=== PATIENT | female | born 1945 | race Caucasian/White ===

== ENCOUNTER 2018-06-29 11:07 | Inpatient (IN) | payer MEDICARE ==
[~2018-06-29] VITALS: Ht 142.2 cm; Wt 51.7 kg
--- NOTE | ~2018-06-29 | HEMODYNAMI ---
PATIENT:PANCHO GONZALEZ MEDICAL RECORD: [id number] : 47 LOCATION: D.2227 ADMISSION DATE: 06/29/18 Generatedon:07/02/201813:56 Patient name: PANCHO GONZALEZ Patient #: [id number] SSN: D OB: 1945 Date of study: 07/02/2018 Page: Of Hemodynamic Procedure Report Patient Data Patient Demographics Procedure consent was obtained First Name: PANCHO Gender: Female Last Name: LISA : 1945 Patient #: [id number] Age: 73 year(s) Race: Unknown Additional ID: [id number] Contact details [address]: [address] [place] [address] DR State: [place] City: [place] Zip code: [address] Admission Admission Data Admission Date: 06/29/2018 Admission Time: 14:32 Room #: D.2227 Procedure Procedure Types Cath Procedure Peripheral Cath Diagnostic Procedure Abd/Extremity Extremities Bilat Lower Extremity Procedure Description Procedure Date Procedure Date: 07/02/2018 Procedure Start Time: 12:27 Procedure Staff Name Function Roddy Aaron RT Monitor Venkat Machuca MD Additional personnel Won Brown MD Performing Physician Graciela Barth RN Nurse Janie Thomas RN Nurse ANIYA ASHTON RT Scrub Procedure Data Cath Procedure Fluoroscopy Diagnostic fluoroscopy Total fluoroscopy Time: 9.1 time: 9.1 min min Diagnostic fluoroscopy Total fluoroscopy dose: 281 dose: 281 mGy mGy Contrast Material Contrast Material Type Amount (ml) Isovue 300 160 Entry Location Entry Primary Successful Side Size Upsize Upsize Entry Closure Succes sful Closure Location (Fr) 1 (Fr) 2 (Fr) Remarks Device Remarks Femoral Right 5 Fr artery Procedure Medications Medication Administration Route Dosage Lidocaine 1% added to field 20 Heparin Flush Bag 3 bags (1000units/500ml NS) Heparin Bolus I.V. 5000 units Hemodynamics Rest Heart Rate: 85 (bpm) Snapshots Pre Cath Intra NCS Post Cath Vital Signs Time Heart Resp SPO2 etCO2 NIBP (mmHg) Rhythm Pain Sedation Rate (ipm) (%) (mmHg) Status Level (bpm) 12:04:04 84 10 98 0 157/64(103) NSR 0 (11) 10(A) , No pain 12:08:22 96 17 0 158/86(120) NSR 0 (11) 10(A) , No pain 12:12:48 80 2 98 0 153/64(109) NSR 0 (11) 10(A) , No pain 12:17:08 68 4 97 0 113/51(87) NSR 0 (11) 10(A) , No pain 12:21:20 60 4 96 0 109/51(86) NSR 0 (11) 10(A) , No pain 12:25:30 58 4 96 0 108/54(83) NSR 0 (11) 10(A) , No pain 12:29:40 57 5 96 0 106/52(88) NSR 0 (11) 10(A) , No pain 12:33:50 57 5 96 0 109/52(85) NSR 0 () 10(A) , No pain 12:38:00 62 5 95 0 110/55(85) NSR 0 () 10(A) , No pain 12:42:10 62 5 95 0 108/52(82) NSR 0 (11) 10(A) , No pain 12:46:20 62 6 96 0 107/52(85) NSR 0 (11) 10(A) , No pain 12:50:29 64 5 96 0 104/50(88) NSR 0 (11) 10(A) , No pain 12:54:37 62 5 96 0 104/51(86) NSR 0 (11) 10(A) , No pain 12:58:47 64 5 96 0 94/47(74) NSR 0 (11) 10(A) , No pain 13:02:53 65 6 96 0 111/47(84) NSR 0 (11) 10(A) , No pain 13:07:07 67 6 97 0 105/44(84) NSR 0 (11) 10(A) , No pain 13:11:17 66 7 95 0 106/50(77) NSR 0 (11) 10(A) , No pain 13:15:27 66 6 97 0 104/50(87) NSR 0 (11) 10(A) , No pain 13:19:34 63 6 97 0 108/50(84) NSR 0 (11) 10(A) , No pain 13:23:44 65 7 0 112/52(89) NSR 0 (11) 10(A) , No pain 13:27:56 70 6 97 0 113/48(93) NSR 0 (11) 10(A) , No pain 13:32:08 65 7 96 0 120/51(88) NSR 0 (11) 10(A) , No pain 13:36:22 65 7 97 0 116/55(91) NSR 0 (11) 10(A) , No pain 13:40:32 69 7 97 0 131/64(101) NSR 0 (11) 10(A) , No pain 13:45:31 75 7 100 0 Measuring NSR 0 (11) 10(A) , No pain 13:45:41 75 7 100 0 173/82(115) NSR 0 (11) 10(A) , No pain 13:50:06 86 8 0 181/87(129) NSR 0 (11) 10(A) , No pain Medications Time Medication Route Dose Verified Delivered Reason Notes Effectiveness by by 12:04:45 Lidocaine 1% added 20ml Won Upton for local to vial Stephanie Brown MD anesthetic field 12:07:51 Heparin Flush 3 Won Upton used for Bag bags Stephanie Brown MD procedure (1000units/500ml NS) 12:55:17 Heparin Bolus I.V. 5000 Won Dardeni for units William Brown RN anticoagulation MD Procedure Log Time Note 11:49:00 Roddy Walker RT (R) (CV) sent for patient. Start room use. 11:49:52 Venkat Machuca MD present and monitoring patient for TIVA. 11:50:27 Time tracking: Regular hours (M-F 7:00 - 5:00) 11:50:31 Plan of Care:Hemodynamics will remain stable., Cardiac rhythm will remain stable., Comfort level will be maintained., Respiratory function will remain adequate., Patient/ family verbilizes understanding of procedure., Procedure tolerated without complication., Recovers from procedure without complications.. 11:50:39 Patient received from Med/Surg to IR Alert and oriented. Tansferred to table in Supine position. 11:50:46 Correct patient and procedure confirmed by team. 11:50:52 Signed procedure consent form obtained from patient. 11:50:53 ECG and BP/O2 sat monitors applied to patient. 11:50:54 - 11:50:55 Full Disclosure recording started 11:51:12 Pre-procedure instructions explained to patient. 11:51:12 Pre-procedure instructions explained to patient. 11:51:19 H&P Date Dictated: 07/02/2018 Within 30 days and on chart.. 11:51:21 Pre-op teaching completed and patient verbalized understanding. 11:51:23 Family in waiting room. 11:51:27 - 11:51:27 Patient NPO since Midnight. 11:51:51 SEE ANESTHESIA NOTE FOR PRE PROCEDURE ANESTHESIA 11:51:54 - 11:51:59 Use device set IR Diagnostic 11:52:00 ACIST Syringe (82351) opened to sterile field. 11:52:01 Bag Decanter () opened to sterile field. 11:52:01 ACIST Manifold (89170) opened to sterile field. 11:52:01 ACIST Hand Control (66783) opened to sterile field. 11:52:02 Tegaderm 4 x 4 (1626W) opened to sterile field. 11:52:02 Sterile Angiographic Pack opened to sterile field. 12:02:45 Baseline sample Acquired. 12:02:45 Vital chart was started 12:02:53 Right groin area was prepped with chlora-prep and draped in sterile fashion 12:02:55 Alarms reviewed by R. N. 12:02:56 Sharps counted by scrub and verified by R.N. 12:04:45 Lidocaine 1% 20ml vial added to field was administered by Won Brown MD; for local anesthetic; 12:07:51 Heparin Flush Bag (1000units/500ml NS) 3 bags was administered by Won Brown MD; used for procedure; 12::31 --------ALL STOP TIME OUT------ 12::35 Final Timeout: patient, procedure, and site verified with staff and physician. All members of the team are in agreement. 12:26:36 Right groin site verified by team. 12:26:48 Fire Safety Assessment: A--An alcohol-based skin anteseptic being used preoperatively., C--Open oxygen or nitrous oxide is being used. 12:26:58 Sedation plan: General Anesthesia Medication:General Anesthesia 12:27:10 Procedure started. 12:27:15 Local anesthetic to right femoral artery with Lidocaine 1% by Won Brown MD.INITIAL ACCESS ONLY 12:27:17 Access obtained with 4Fr micropunture. 12:27:27 A 5 Fr sheath was inserted into the Right Femoral artery 12:27:31 Micropuncture VSI 4FR kit opened to sterile field. 12:27:31 DOC .035 wire (D65193) opened to sterile field. 12:27:32 HERNANDEZ 260 wire (N18413) opened to sterile field. 12:27:32 SHEATH 6FR Destination (RSR01) opened to sterile field. 12:27:32 TUBING Contrast Injection High Pressure (RKP401H) opened to sterile field. 12:27:32 SHEATH 5FR Birney (ZRO415) opened to sterile field. 12:27:33 Angiodynamics Omniflush 5Fr 65cm (24915327) opened to sterile field. 12:30:27 TORQUE DEVICE PLASTIC .038 ( TD01) opened to sterile field. 12:30:28 GLIDE WIRE ANGLE 180cm (EF6471) opened to sterile field. 12:37:22 GLIDE CATHETER 5FR ANGLED 65cm (CG507) opened to sterile field. 12:43:39 INFLATOR BasixTOUCH (NM8002) opened to sterile field. 12:43:40 ROADRUNNER .035 145 glide wire (X23359) opened to sterile field. 12:53:27 CHOICE PT Extra Support J 300cm guide wire ([id number]) opened to steril e field. 12:55:15 Hawkone Medium Atherectomy System (H1-M) opened to sterile field. 12:55:17 Heparin Bolus 5000 units I.V. was administered by Janie Thomas RN; for anticoagulation; 12:56:30 SPIDER EMBOLIC PROTECTION DEVICE 5MM ([id number]) opened to sterile field. 13:20:39 Access obtained with 4Fr micropunture. 13:23:54 Inflate balloon Inflation number: 2 A Evercross 5 x 4 x 135 Balloon ([id number]) was prepped and advanced across the Proximal Superficial Femoral, Left, then inflated to 14 DUANE for 0:00 (min:sec). 13:26:26 Inflate balloon Inflation number: 1 A IN.PACT Admiral 6 x 60 x 130 DCB Balloon ([id number]) was prepped and advanced across the Proximal Superficial Femoral, Left, then inflated to 0 DUANE for 2:58 (min:sec). 13:26:29 SHEATH 6FR Birney (BQB053) opened to sterile field. 13:38:06 EXOSEAL 6Fr (EX600) opened to sterile field. 13:38:13 Procedure ended.(Physican Out) 13:38:27 Fluoroscopy time 09.10 minutes. 13:38:31 Fluoroscopy dose: 281 mGy 13:38:31 Flurop Dose total: 281 13:38:33 Sharps counted by scrub and verified by R.N. 13:38:35 Insertion/operative site no bleeding no hematoma. 13:38:38 Post-op/insertion site Right Femoral artery dressed using a 4 x 4 and Tegaderm. 13:38:49 Post right femoral artery:stable 13:44:02 Post Procedure Pulses reassessed and unchanged 13:52:34 Patient needs reinforcement of post procedure teaching. 13:52:41 Report given to Recovery Room. 13:52:48 Patient transfered to Recovery Room with Bed. 13:53:25 Vital chart was stopped 13:53:30 Full Disclosure recording stopped 13:55:46 Contrast amount:Isovue 300 160ml. Intervention Summary Intervention Notes Time ActionType Lesion and Equipment Used Action# Pressure Duration Attributes 13:23:54 Inflate Proximal Evercross 5 x 4 2 14 00:00 balloon Superficial x 135 Balloon Femoral, ([id number]) Left 13:26:26 Inflate Proximal IN.PACT Admiral 1 0 02:58 balloon Superficial 6 x 80 x 130 Femoral, DCB Balloon Left ([id number]) Device Usage Item Name Manufacture Quantity Catalog Number [facility] Minimal Lot# / Charge Number Stock Stock Serial# Code ACIST Syringe Acist Medical 1 07610 583098 576617 096054 20 (00919) Systems Inc ACIST Hand Acist Medical 1 37843 475650 267961 149182 5 Control (15779) Systems Inc ACIST Manifold Acist Medical 1 73598 198764 237113 266913 5 (45748) Systems Inc Bag Decanter Microtek 1 2001S 153283 71556 212502 5 (2001S) Medical Inc. Sterile Cardinal 1 [id number] 289748 536454 5 Angiographic Health Pack Tegaderm 4 x 4 3M 1 1626W 474884 921266 410015 5 (1626W) DOC .035 wire Cook Medical 1 U11304 073095 440322 5 (S58642) Micropuncture VSI VASCULAR 1 7266V 068171 247887 5 VSI 4FR kit SOLUTIONS TUBING Contrast [facility] 1 [id number] 748015 883826 893180 5 Injection High Pressure (WOA001H) SHEATH 5FR Terumo 1 SED746 262065 369175 729909 5 Birney (NCY040) HERNANDEZ 260 wire Cook Medical 1 Y12473 432736 82579 041487 5 (V68822) SHEATH 6FR Terumo 1 RSR01 612176 86146 520430 5 Destination (RSR01) Angiodynamics Angiodynamics 1 82321095 976087 296950 211270 5 Omniflush 5Fr 65cm (16116712) TORQUE DEVICE [place] 1 TD01 797969 090712 555717 5 PLASTIC .038 ( Scientific TD01) GLIDE WIRE Terumo 1 LH9403 887733 325990 064676 5 ANGLE 180cm (BG8327) GLIDE CATHETER Terumo 1 CG507 279272 758353 5 5FR ANGLED 65cm (CG507) INFLATOR [facility] 1 IA8189 189701 595714 916268 5 BasixTOUCH (SA6724) ROADRUNNER .035 Cook Medical 1 D36656 531854 022735 240293 5 3148365 145 glide wire (U64443) CHOICE PT Extra [place] 1 [id number] 854402 910819 641724 5 [id number] Support J 300cm Scientific guide wire (1178049F8) Hawkone Medium Medtronic 1 H1-M 261044 078677 83 5 [id number] Atherectomy System (H1-M) SPIDER EMBOLIC Medtronic 1 JCB6-OM-835-320 618534 285487 5 PROTECTION DEVICE 5MM ([id number]) IN.PACT Admiral Medtronic 1 [id number] 545359 243602 466151 5 6 x 80 x 130 DCB Balloon ([id number]) SHEATH 6FR Terumo 1 AQL848 409392 510434 508081 40 Birney (NVE000) Evercross 5 x 4 Medtronic 1 [id number] 169978 563065 726311 5 O730237 x 135 Balloon ([id number]) EXOSEAL 6Fr Cardinal 1 EX600 277877 281862 171239 10 [id number] (EX600) Health Signature Audit [place] Stage Time Signature Unsigned Intra-Procedure 07/02/2018 Roddy Walker RT 1:53:09 PM Shuffield RT (R) (CV) 07/02/2018 (R) (CV) 1:55:40 PM Intra-Procedure 07/02/2018 Roddy 1:56:27 PM Yuridiaield RT (R) (CV) Signatures Monitor : Roddy Signature : Aaron RT Date : Time : [facility] [address] [place] [address]
[2018-06-29 11:37] LABS: BASOPHILS 0.5 % (0-2); EOSINOPHILS 0.3 % (0-7); HEMATOCRIT 37.8 % (36.0-48.0); HEMOGLOBIN 12.4 g/dL (12-16); IMMATURE GRANULOCYTES 0.2 % (0-5); LYMPHOCYTES 22.1 % (15-50); MCHC 32.8 g/dL (31.0-37.0); MCV 100.5 fL (80.0-100.0); MEAN PLATELET VOLUME 10.3 fL (7.4-10.4); MONOCYTES 9.7 % (2-11); NEUTROPHILS 67.2 % (40-80); PLATELET COUNT 210 10x3/uL (130-400); RBC 3.76 10x6/uL (4.00-5.40); WBC 11.1 10x3/uL (4.8-10.8)
[2018-06-29 12:00] LABS: ALBUMIN 2.7 g/dL (3.4-5.0); ALKALINE PHOSPHATASE 130 U/L (46-116); ALT (SGPT) 32 U/L (10-68); BILIRUBIN - TOTAL 0.59 mg/dL (0.2-1.3); CALC OSMOLALITY 278 mosm/kg (275-300); CALCIUM 8.4 mg/dL (8.5-10.1); CARBON DIOXIDE 22.5 mmol/L (21.0-32.0); CHLORIDE - SERUM 107 mmol/L (98-107); CREATININE - SERUM 0.3 mg/dL (0.6-1.3); GLUCOSE 84 mg/dL (74-106); POTASSIUM - SERUM 4.2 mmol/L (3.5-5.1); PROTEIN - SERUM 5.6 g/dL (6.4-8.2); SODIUM 141 mmol/L (136-145); UREA NITROGEN 11 mg/dL (7-18); eGFR NON AFRICAN AMERICAN > 90 mL/min (90-120)
[2018-06-29 12:23] LABS: APPEARANCE CLEAR (CLEAR); BILIRUBIN NEGATIVE (NEGATIVE); COLOR YELLOW (YELLOW); GLUCOSE NEGATIVE (NEGATIVE); KETONE NEGATIVE (NEGATIVE); NITRITE NEGATIVE (NEGATIVE); PROTEIN NEGATIVE (NEGATIVE)
[2018-06-29 12:25] LABS: BACTERIA MODERATE /hpf (NONE SEEN); EPITHELIAL CELLS 0-5 /hpf (0-5); MUCUS <1+ /lpf (NONE SEEN); RED CELLS - URINE RARE /hpf (0-5); WHITE CELLS - URINE 0-5 /hpf (0-5)
--- NOTE | 2018-06-29 15:38 | NUR ---
Tips of toes on left foot are black/necrotic without drainage or odor. Foot is cold to the touch. Primary RN unable to locate pulses with doppler. Orders from Dr. Huynh noted on daily care i.e. wash foot daily with hibiclens and apply ointment to black areas. Primary RN cultured left #5 toe. The toes on right foot are beginning to turn dark and the right foot is cold to the touch. Pt's primary RN had difficulty finding pulses with doppler. Wound care will continue monitoring.
--- NOTE | 2018-06-29 15:57 | NUR ---
ATTEMPTED IV PLACEMENT X2. UNABLE TO GET IV PLACEMENT. CALL TO [facility]
--- NOTE | 2018-06-29 16:15 | NUR ---
iv sited to right forearm x1 stick by shirin gonzalez rn,22g.
[2018-06-29] MEDS ORDERED: HYDROCODON-ACE1 EA10 PO (16:34)
[2018-06-29] MEDS ORDERED: COLCRYS0.6 MG PO (16:35)
[2018-06-29] MEDS ORDERED: LOMOTIL 2.5-0.1 EAC1 PO (16:37)
[2018-06-29] MEDS ORDERED: KEFLEX500 MG PO (16:38)
[2018-06-29] MEDS ORDERED: ULTRAM50 MG PO (16:39)
[2018-06-29] MEDS ORDERED: PLAVIX75 MG PO (16:39)
[2018-06-29] MEDS ORDERED: LIPITOR20 MG PO (16:40)
[2018-06-29] MEDS ORDERED: TOPAMAX50 MG PO (16:41)
[2018-06-29] MEDS ORDERED: LASIX40 MG PO (16:41)
[2018-06-29] MEDS ORDERED: REGLAN10 MG PO (16:43)
[2018-06-29] MEDS ORDERED: LEVO-T175 MCG PO (16:44)
[2018-06-29] MEDS ORDERED: CILOSTAZOL100 MG PO (16:45)
[2018-06-29] MEDS ORDERED: POTASSIUM99 M1 PO (16:46)
[2018-06-29] MEDS ORDERED: CELEXA20 MG PO (16:48)
[2018-06-29] MEDS ORDERED: IPRAT-ALBUT 0.5-3 ML UPD (16:49)
[2018-06-29 17:18] VITALS: BP 112/79; BMI 25.6
--- NOTE | 2018-06-29 19:15 | NUR ---
RECEIVED REPORT, ASSUMED CARE, A&O, SISTER AT BEDSIDE, CALL LIGHT IN REACH, BED LOWEST POSITION, DENIES NEEDS, HELPED UP TO BATHROOM, NO S/S OF DISTRESS NOTED, WILL CONTINUE POC
[2018-06-29 19:35] VITALS: BP 113/38
--- NOTE | 2018-06-30 01:00 | NUR ---
I have reviewed this patient and I concur with the Shift Assessment completed by the Licensed Practical Nurse today this shift.
[2018-06-30 01:36] VITALS: BP 115/47
[2018-06-30 05:39] VITALS: BP 112/53
--- NOTE | 2018-06-30 07:48 | NUR ---
aaox4. ON ROOM AIR, LEFT WRIST IV PATENT, INFUSING NS AT 50ML/HR WITH DILAUDID NON PROFIT DIRECTOR AT 0.2/10/0.4 SETTINGS, FALL PRECAUTIONS IN PLACE, FAMILY MEMBER PRESENT IN ROOM, DENIES ANY CURRENT NEEDS OR DISCOMFORTS, BED LOWERED AND LOCKED, CALL LIGHT WITHIN REACH. CPOC
[2018-06-30 09:10] VITALS: BP 120/46
[2018-06-30 10:27] VITALS: BMI 25.5
[2018-06-30 13:35] VITALS: BP 105/57
--- NOTE | 2018-06-30 13:35 | NUR ---
I have reviewed this patient and I concur with the Shift Assessment completed by the Licensed Practical Nurse today this shift.
[2018-06-30 16:48] VITALS: BP 119/46
--- NOTE | 2018-06-30 19:15 | NUR ---
RECEIVED CARE FROM DAY NURSE. LYING IN BED WATCHING TV. MOTHER AT SIDE. NO NEEDS VOICED AT THIS TIME. CALL LIGHT AT SIDE. IV INFUSING PER ORDER TO PATENT LEFT WRIST.
[2018-06-30 21:01] VITALS: BP 120/52
[2018-07-01 01:20] VITALS: BP 123/57
[2018-07-01 05:21] VITALS: BP 149/56
[2018-07-01 09:25] VITALS: BP 139/49
[2018-07-01 11:26] VITALS: Ht 142.2 cm; Wt 51.7 kg
[2018-07-01 12:20] VITALS: BP 115/45
--- NOTE | 2018-07-01 15:45 | NUR ---
CHANGED PT PC TECHNICIAN, WHILE IN PT ROOM, DR LAGUNAS STOPPED IN AND EXAMINED PT FOOT, STATED LEFT FOOT FEELS WARM TO TOUCH AND TOES LOOK GOOD CONSIDERING THE FACT. PT AND FAMILY MEMBER IN ROOM ASKED ABOUT POSSIBLE SURGERY AND WHEN IT WILL BE. PER NO NEED FOR SURGERY RIGHT NOW AND THE ONLY TOE THAT LOOKED BAD WAS THE LITTLE ONE AND IT WILL MOST LIKELY FALL OFF. PT AND FAMILY STATED BEST NEWS THEY HAVE HEARD. NO OTHER NEEDS VOICED, CONTINUE WITH PLAN OF CARE
--- NOTE | 2018-07-01 16:21 | NUR ---
I have reviewed this patient and I concur with the Shift Assessment completed by the Licensed Practical Nurse today this shift.
[2018-07-01 16:36] VITALS: BP 113/46
--- NOTE | 2018-07-01 19:15 | NUR ---
RECEIVED CARE FROM DAY NURSE. LYING IN BED WITH DAUGHTER AT SIDE. NO NEEDS VOICED AT THIS TIME. IV INFUSING TO PATENT LEFT WRIST. CALL LIGHT AT SIDE.
--- NOTE | 2018-07-01 19:25 | NUR ---
SPOKE WITH RADIOLOGY DEPARTMENT ABOUT PT BEING ON PLAVIX AND LOVENOX. LOVENOX ON HOLD AT THIS TIME.
[2018-07-01 19:45] VITALS: BP 119/48
[2018-07-02] VITALS (13 sets, daily range): BP systolic 121–172; BP diastolic 41–82
[2018-07-02 05:53] LABS: BASOPHILS 0.3 % (0-2); EOSINOPHILS 3.4 % (0-7); HEMATOCRIT 34.5 % (36.0-48.0); IMMATURE GRANULOCYTES 0.3 % (0-5); LYMPHOCYTES 24.6 % (15-50); MCH 32.4 pg (26.0-34.0); MCHC 31.9 g/dL (31.0-37.0); MCV 101.8 fL (80.0-100.0); MEAN PLATELET VOLUME 10.7 fL (7.4-10.4); NEUTROPHILS 58.4 % (40-80); PLATELET COUNT 189 10x3/uL (130-400); RBC 3.39 10x6/uL (4.00-5.40); RDW 15.3 % (11.5-14.5); WBC 7.3 10x3/uL (4.8-10.8)
[2018-07-02 06:10] LABS: CALC OSMOLALITY 289 mosm/kg (275-300); CALCIUM 7.7 mg/dL (8.5-10.1); CARBON DIOXIDE 27.5 mmol/L (21.0-32.0); CHLORIDE - SERUM 111 mmol/L (98-107); CREATININE - SERUM 0.5 mg/dL (0.6-1.3); GLUCOSE 94 mg/dL (74-106); SODIUM 147 mmol/L (136-145); UREA NITROGEN 7 mg/dL (7-18); eGFR NON AFRICAN AMERICAN > 90 mL/min (90-120)
[2018-07-02 06:27] LABS: POTASSIUM - SERUM 2.9 mmol/L (3.5-5.1)
--- NOTE | 2018-07-02 06:32 | NUR ---
DR PATTERSON PAGED ABOUT LOW K LEVEL
--- NOTE | 2018-07-02 06:35 | NUR ---
SPOKE WITH DR PATTERSON AND REPORTS THAT DR LAGUNAS TAKES HIS OWN CALLS. NO PHONE NUMBER AVAILABLE FOR DR LAGUNAS. CALLING DR ELENA OFFICE DOES NOT LEAD TO A CALL SERVICE.
[2018-07-02 06:36] LABS: APTT 28.8 SECONDS (22.8-39.4)
[2018-07-02 06:40] LABS: INR 0.9 (0.85-1.17); PROTIME 11.7 SECONDS (11.6-15.0)
--- NOTE | 2018-07-02 08:00 | NUR ---
LYING IN BED,WITHOUT DISTRESS. NPO FOR PROCEDURE. CALL LIGHT IN REACH
--- NOTE | 2018-07-02 10:28 | NUR ---
PT RESTING QUIETLY IN BED, LIGHTS ON AND EYES OPEN. RESPIRATIONS EVEN AND UNLABORED. FAMILY AT BEDSIDE. NPO STATUS MAINTAINED PREPROCEDURE TODAY. AM MEDS GIVEN WITH MINIMAL WATER. NEW PVIC PLACED, 20G TO L AC, ONE ATTEMPT TOLERATED WELL. BIGGER ACCESS REQUIRED FOR PROCEDURE AND FOR IV POTASSIUM. PVIC TO L WRIST. 22G PATENT AND NONTENDER. NO SIGNS OF INFECTION OR INFILTRATION NOTED. NO COMPLAINTS VOICED AT THIS TIME. CALL LIGHT AND BEDSIDE TABLE IN REACH. BED IN LOWEST POSTION. ROOM FREE OF CLUTTER. ALL NEEDS MET AT THIS TIME. WILL CONTINUE TO MONITOR
--- NOTE | 2018-07-02 17:04 | NUR ---
Rehab Note- Acute Inpatient Rehab prescreen order received. The patient needs a PT Eval to eval functional mobility. Will follow at this time. Thank you for this referral! Anjelica Martin RN Clinical Liaison, [facility] Rehab
--- NOTE | 2018-07-02 20:00 | NUR ---
PT SITTING UP IN BED, NO SIGNS OF DISTRESS. ALERT AND ORIENTED. STATES PAIN 10/10. WILL GIVE NORCO ORDERED. DENIES OTHER NEEDS. FAMILY AT BEDSIDE. CL IN REACH, WILL CONT TO MONITOR
--- NOTE | 2018-07-03 01:00 | NUR ---
DR LAGUNAS CALLED FOR K+ 2.6. ORDERED ELECTROLYTE PROTOCOL. WILL FOLLOW ORDERED
[2018-07-03 01:43] VITALS: BP 105/51
--- NOTE | 2018-07-03 07:29 | MORECARE ---
CASE MANAGEMENT DISCHARGE SUMMARY PATIENT: PANCHO GONZALEZ UNIT: [id number] ADM DATE: 06/29/18 AGE: 73 : 46 SEX: F ROOM/BED: D.2227 AUTHOR: TUAN ODONNELL PHYSICIAN: REFERRING PHYSICIAN: DAVID LAGUNAS MD DATE OF SERVICE: 07/03/18 Discharge Plan Patient Name: PANCHO GONZALEZ [facility] [facility] 1945 Planned Disposition: Custodial Facility Anticipated Discharge Date: Discharge Date: Expected LOS: Initial Reviewer: [email or web address] Initial Review Date: 07/03/2018 Generated: 07/03/18 8:29 am External Providers External Provider: [facility] Next Contact Date: Service Request Date: Service Type: Resolution: Reviewer: Comments: Patient Name: PANCHO GONZALEZ Page 93160 at 0729 All edits/amendments must be made on the electronic document DICTATION DATE: 07/03/18728 TELEHEALTH NURSE: JORDYN 07/03/18728 RPT#: [id number] DC DATE: STATUS: ADM IN [facility] [address] [place] [address] END OF REPORT
--- NOTE | 2018-07-03 07:36 | MORECARE ---
CASE MANAGEMENT DISCHARGE SUMMARY PATIENT: PANCHO GONZALEZ UNIT: [id number] ADM DATE: 06/29/18 AGE: 73 : 46 SEX: F ROOM/BED: D.2227 AUTHOR: TUAN ODONNELL PHYSICIAN: REFERRING PHYSICIAN: DAVID LAGUNAS MD DATE OF SERVICE: 07/03/18 Discharge Plan Patient Name: PANCHO GONZALEZ Facility: [facility]:[place] : 1945 Planned Disposition: Long-Term Facility Anticipated Discharge Date: Discharge Date: Expected LOS: Initial Reviewer: [email or web address] Initial Review Date: 07/03/2018 Generated: 07/03/18 8:35 am DCPIA - Discharge Planning Initial Assessment Updated by [email or web address]: Nancy Pathak on 07/03/18 7:34 am * Is the patient Alert and Oriented? Yes * How many steps to enter\exit or inside your home? 1/0 * PCP Dr. Marroquin * Pharmacy [facility] in [place] * Preadmission Environment Home Alone * ADLs Partial Dependent * Partial ADLs (Assistance needed) Ambulation * Equipment Cane Nebulizer Oxygen Rolling Walker Shower Chair * List name and contact numbers for known caregivers / representatives who currently or will assist patient after discharge: Jolene [facility] sister - [phone] * Verbal permission to speak to the caregivers and representatives has been obtained from the patient. Yes * Community resources currently utilized None * Please name any agencies selected above. DME for oxygen and nebulizer is [facility] * Additional services required to return to the preadmission environment? Yes * Can the patient safely return to the preadmission environment? Yes * Has this patient been hospitalized within the prior 30 days at any hospital? No Last DP export: 07/03/18 6:29 am Patient Name: PANCHO GONZALEZ Page [phone] at 0736 All edits/amendments must be made on the electronic document DICTATION DATE: 07/03/18734 SHOTGUN SHELL ASSEMBLY MACHINE OPERATOR: JORDYN 07/03/18734 RPT#: [id number] DC DATE: STATUS: ADM IN [facility] [address] [place] [address] END OF REPORT
--- NOTE | 2018-07-03 07:49 | MORECARE ---
CASE MANAGEMENT DISCHARGE SUMMARY PATIENT: PANCHO GONZALEZ UNIT: [id number] ADM DATE: 06/29/18 AGE: 73 : 46 SEX: F ROOM/BED: D.2227 AUTHOR: BELLE,DOC PHYSICIAN: REFERRING PHYSICIAN: DAVID LAGUNAS MD DATE OF SERVICE: 07/03/18 Discharge Plan Patient Name: PANCHO GONZALEZ Facility: [facility]:[place] : 1945 Planned Disposition: [facility]fp Facility Anticipated Discharge Date: Discharge Date: Expected LOS: Initial Reviewer: [email or web address] Initial Review Date: 07/03/2018 Generated: 07/03/18 8:48 am Comments DCP- Discharge Planning Updated by [email or web address]: Nancy Pathak on 07/03/18 6:[address] Patient Name: PANCHO GONZALEZ Admission Status: Elective Accout number: [id number] Admission Date: 06-29-2018 : 1945 Admission Diagnosis: Attending: DAVID LAGUNAS Current LOS: 4 Anticipated DC Date: Planned Disposition: [facility]fp Facility Primary Insurance: MEDICARE A & B Discharge Planning Comments: CM met with patient to complete initial dc planning assessment. Her sister is in the room and verbal permission given to discuss discharge planning in front of sister. CM educated patient on the CM role and verbal consent given by patient to complete assessment. Patient lives at home alone. CM discussed availability of home health, rehab services, and medical equipment. Patient states she would like a referral to [facility] in [place], she states that is near her home. She would like to go for SN. States she would like to get stronger prior to returning home. I called [facility] and clinical faxed. CM will continue to follow and assist with discharge planning/needs. Casting Machine Service Operator: Nancy Pathak DCPIA - Discharge Planning Initial Assessment Updated by [email or web address]: Nancy Pathak on 07/03/18 7:34 am * Is the patient Alert and Oriented? Yes * How many steps to enter\exit or inside your home? 1/0 * PCP Dr. Marroquin * Pharmacy [facility] in [place] * Preadmission Environment Home Alone * ADLs Partial Dependent * Partial ADLs (Assistance needed) Ambulation * Equipment Cane Nebulizer Oxygen Rolling Walker Shower Chair * List name and contact numbers for known caregivers / representatives who currently or will assist patient after discharge: Jolene Leon - [facility] - [phone] * Verbal permission to speak to the caregivers and representatives has been obtained from the patient. Yes * Community resources currently utilized None * Please name any agencies selected above. DME for oxygen and nebulizer is [facility] * Additional services required to return to the preadmission environment? Yes * Can the patient safely return to the preadmission environment? Yes * Has this patient been hospitalized within the prior 30 days at any hospital? No Coverage Notice Reviewer: [email or web address] Patricia Pathak Notice Issued Date-Time: 07/03/2018 7:43 Notice Type: Patient Choice Letter Notice Delivered To: Patient Relationship to Patient: Compensation Advisor Name: Delivery Method: HAND - Hand Delivered Ritika Days: Prior Verbal Notification: Recipient Understood Notice: Yes Recipient Signature: Yes Med Rec Note Co-signed by Attending: Coverage Notice Comment: YUE for [facility] Last DP export: 07/03/18 6:36 am Patient Name: PANCHO GONZALEZ Page [phone] at 0749 All edits/amendments must be made on the electronic document DICTATION DATE: 07/03/18747 STONE GLUER: JORDYN 07/03/18747 RPT#: [id number] DC DATE: STATUS: ADM IN [facility] [address] [place] [address] END OF REPORT
[2018-07-03 08:30] VITALS: BP 135/56
--- NOTE | 2018-07-03 12:17 | MORECARE ---
CASE MANAGEMENT DISCHARGE SUMMARY PATIENT: PANCHO GONZALEZ UNIT: [id number] ADM DATE: 06/29/18 AGE: 73 : 46 SEX: F ROOM/BED: D.2227 AUTHOR: BELLE,DOC PHYSICIAN: REFERRING PHYSICIAN: DAVID LAGUNAS MD DATE OF SERVICE: 07/03/18 Discharge Plan Patient Name: PANCHO GONZALEZ Facility: [facility]:[place] : 1945 Planned Disposition: Penitentiary Facility Anticipated Discharge Date: Discharge Date: Expected LOS: Initial Reviewer: [email or web address] Initial Review Date: 07/03/2018 Generated: 07/03/18 1:17 pm Comments DCP- Discharge Planning Updated by [id number]: Nancy Pathak on 07/03/18 11:[address] Spoke with Catalina at [facility], PT notes faxed per request. CM will continue to follow and assist with discharge planning/needs. DCP- Discharge Planning Updated by [email or web address]: Nancy Pathak on 07/03/18 6:[address] Patient Name: PANCHO GONZALEZ Admission Status: Elective Accout number: [id number] Admission Date: 06-29-2018 : 1945 Admission Diagnosis: Attending: DAVID LAGUNAS Current LOS: 4 Anticipated DC Date: Planned Disposition: Penitentiary Facility Primary Insurance: MEDICARE A & B Discharge Planning Comments: CM met with patient to complete initial dc planning assessment. Her sister is in the room and verbal permission given to discuss discharge planning in front of sister. CM educated patient on the CM role and verbal consent given by patient to complete assessment. Patient lives at home alone. CM discussed availability of home health, rehab services, and medical equipment. Patient states she would like a referral to [facility] in [place], she states that is near her home. She would like to go for SN. States she would like to get stronger prior to returning home. I called [facility] and clinical faxed. CM will continue to follow and assist with discharge planning/needs. Electronic Gluer: Nancy Pathak DCPIA - Discharge Planning Initial Assessment Updated by [email or web address]: Nancy Pathak on 07/03/18 7:34 am * Is the patient Alert and Oriented? Yes * How many steps to enter\exit or inside your home? 1/0 * PCP Dr. Marroquin * Pharmacy [facility] in [place] * Preadmission Environment Home Alone * ADLs Partial Dependent * Partial ADLs (Assistance needed) Ambulation * Equipment Cane Nebulizer Oxygen Rolling Walker Shower Chair * List name and contact numbers for known caregivers / representatives who currently or will assist patient after discharge: [facility] [phone] * Verbal permission to speak to the caregivers and representatives has been obtained from the patient. Yes * Community resources currently utilized None * Please name any agencies selected above. DME for oxygen and nebulizer is [facility] * Additional services required to return to the preadmission environment? Yes * Can the patient safely return to the preadmission environment? Yes * Has this patient been hospitalized within the prior 30 days at any hospital? No Coverage Notice Reviewer: [id number] Patricia Pathak Notice Issued Date-Time: 07/03/2018 7:43 Notice Type: Patient Choice Letter Notice Delivered To: Patient Relationship to Patient: Application Spec Name: Delivery Method: HAND - Hand Delivered Ritika Days: Prior Verbal Notification: Recipient Understood Notice: Yes Recipient Signature: Yes Med Rec Note Co-signed by Attending: Coverage Notice Comment: YUE for [facility] Last DP export: 07/03/18 6:48 am Patient Name: PANCHO GONZALEZ Page 99835 at 1217 All edits/amendments must be made on the electronic document DICTATION DATE: 07/03/18 1216 SECURITY CONTROLS ASSESSOR: JORDYN 07/03/18 1216 RPT#: [id number] DC DATE: STATUS: ADM IN [facility] [address] [place] [address] END OF REPORT
--- NOTE | 2018-07-03 13:00 | NUR ---
NUTRITION F/U CHART REVIEWED, PT VISIT. REPORTS GOOD INTAKE REG DIET. WILL CONTINUE TO HONOR FOOD PREFERENCES, MONITOR PO INTAKE. RD FOLLOWING
--- NOTE | 2018-07-03 13:53 | MORECARE ---
CASE MANAGEMENT DISCHARGE SUMMARY PATIENT: PANCHO GONZALEZ UNIT: [id number] ADM DATE: 06/29/18 AGE: 73 : 46 SEX: F ROOM/BED: D.2227 AUTHOR: TUAN ODONNELL PHYSICIAN: REFERRING PHYSICIAN: DAVID LAGUNAS MD DATE OF SERVICE: 07/03/18 Discharge Plan Patient Name: PANCHO GONZALEZ Facility: [facility]:[place] : 1945 Planned Disposition: Mcfp Facility Anticipated Discharge Date: Discharge Date: Expected LOS: Initial Reviewer: [email or web address] Initial Review Date: 07/03/2018 Generated: 07/03/18 2:52 pm Comments DCP- Discharge Planning Updated by [email or web address]: Nancy Zo on 07/03/18 12:[address] Patient Name: PANCHO GONZALEZ Encounter No: [id number] : 1945 Primary Insurance: MEDICARE A & B Anticipated DC Date: Planned Disposition: Mcfp Facility External Planned Provider: : DCP follow-up note: Patient and family in agreement with discharge plan. No changes to plan. She has been accepted to [place], she is going to a skilled bed. Her sister is in the room and states she will drive her there. I spoke with Catalina and informed her this. DC med rec and MAR faxed. CM will continue to follow and assist with discharge planning/needs. Nancy Zo DCP- Discharge Planning Updated by [email or web address]: Nancy Pathak on 07/03/18 11:[address] Spoke with Catalina at [facility], PT notes faxed per request. CM will continue to follow and assist with discharge planning/needs. DCP- Discharge Planning Updated by [email or web address]: Nancy Zo on 07/03/18 6:[address] Patient Name: PANCHO GONZALEZ Admission Status: Elective Accout number: [id number] Admission Date: 06-29-2018 : 1945 Admission Diagnosis: Attending: DAVID LAGUNAS Current LOS: 4 Anticipated DC Date: Planned Disposition: Mcfp Facility Primary Insurance: MEDICARE A & B Discharge Planning Comments: CM met with patient to complete initial dc planning assessment. Her sister is in the room and verbal permission given to discuss discharge planning in front of sister. CM educated patient on the CM role and verbal consent given by patient to complete assessment. Patient lives at home alone. CM discussed availability of home health, rehab services, and medical equipment. Patient states she would like a referral to [facility] in [place], she states that is near her home. She would like to go for SN. States she would like to get stronger prior to returning home. I called [facility] and clinical faxed. CM will continue to follow and assist with discharge planning/needs. Ground Host/Hostess: Nancy Pathak DCPIA - Discharge Planning Initial Assessment Updated by [email or web address]: Nancy Pathak on 07/03/18 7:34 am * Is the patient Alert and Oriented? Yes * How many steps to enter\exit or inside your home? 1/0 * PCP Dr. Marroquin * Pharmacy [facility] in [place] * Preadmission Environment Home Alone * ADLs Partial Dependent * Partial ADLs (Assistance needed) Ambulation * Equipment Cane Nebulizer Oxygen Rolling Walker Shower Chair * List name and contact numbers for known caregivers / representatives who currently or will assist patient after discharge: Jolene Leon Patricia moura - [phone] * Verbal permission to speak to the caregivers and representatives has been obtained from the patient. Yes * Community resources currently utilized None * Please name any agencies selected above. DME for oxygen and nebulizer is [facility] * Additional services required to return to the preadmission environment? Yes * Can the patient safely return to the preadmission environment? Yes * Has this patient been hospitalized within the prior 30 days at any hospital? No Coverage Notice Reviewer: [id number] Patricia Pathak Notice Issued Date-Time: 07/03/2018 7:43 Notice Type: Patient Choice Letter Notice Delivered To: Patient Relationship to Patient: Pre Sales Systems Engineer Name: Delivery Method: HAND - Hand Delivered Ritika Days: Prior Verbal Notification: Recipient Understood Notice: Yes Recipient Signature: Yes Med Rec Note Co-signed by Attending: Coverage Notice Comment: YUE for [facility] Reviewer: [id number] Patricia Pathak Notice Issued Date-Time: 07/03/2018 13:13 Notice Type: IM Discharge Notice Notice Delivered To: Patient Relationship to Patient: Self Pre Sales Systems Engineer Name: Delivery Method: HAND - Hand Delivered Ritika Days: Prior Verbal Notification: Recipient Understood Notice: Yes Recipient Signature: Yes Med Rec Note Co-signed by Attending: Coverage Notice Comment: IMM explained, signed, given, copy placed in MR Last DP export: 07/03/18 11:17 am Patient Name: PANCHO GONZALEZ Page [phone] at 1353 All edits/amendments must be made on the electronic document DICTATION DATE: 07/03/18 135 BROKE WORKER: JORDYN 07/03/18 1352 RPT#: [id number] DC DATE: STATUS: ADM IN [facility] [address] [place] [address] END OF REPORT
[2018-07-03 14:00] VITALS: BP 140/74
--- NOTE | 2018-07-03 17:08 | NUR ---
IV DCD WITH CATH TIP INTACT. DISCHARGE INSTRUCTIONS,STATES UNDERSTANDING. FAMILY TO TRANSPORT TO [facility]
--- NOTE | 2018-07-03 17:09 | NUR ---
CALL TO [facility], SPOKE WITH FAMILIA. REPORT TO FAISAL SANDRA LPN
--- NOTE | 2018-07-03 17:19 | NUR ---
LEFT UNIT VIA WHEELCHAIR
== END 2018-07-03 17:20 | DRG 271 ==
LOC: D.LAB 11:07 → D.CT 11:30 → D.MS 14:32
PROVIDERS: General Practice; ADMIT Surgery; ATTEND Surgery
PROC: 047L3Z1 Dilation of Left Femoral Artery using Drug-Coated Balloon, Percutaneous Approach (ICD-10-PCS; 2018-07-02)
PROC: 04CL3ZZ Extirpation of Matter from Left Femoral Artery, Percutaneous Approach (ICD-10-PCS; principal; 2018-07-02 12:15)
DX: I70.268 Atherosclerosis of native arteries of extremities with gangrene, other extremity (principal); F17.213 Nicotine dependence, cigarettes, with withdrawal; F11.20 Opioid dependence, uncomplicated; J44.9 Chronic obstructive pulmonary disease, unspecified; F32.9 Major depressive disorder, single episode, unspecified; F41.9 Anxiety disorder, unspecified; E03.9 Hypothyroidism, unspecified; E78.5 Hyperlipidemia, unspecified; I10 Essential (primary) hypertension; G89.4 Chronic pain syndrome

== ENCOUNTER 2018-11-06 10:22 | Outpatient (CLI) | payer MEDICARE ==
[~2018-11-06] VITALS: Ht 142.2 cm; Wt 63.6 kg
--- NOTE | ~2018-11-06 | HEMODYNAMI ---
PATIENT:PANCHO GONZALEZ MEDICAL RECORD: [id number] : [birth year] LOCATION:[facility] ADMISSION DATE: 11/06/18 Generatedon:11/06/201816:26 Patient name: PANCHO GONZALEZ Patient #: [id number] SSN: D OB: 1945 Date of study: 11/06/2018 Page: Of Hemodynamic Procedure Report Patient Data Patient Demographics Procedure consent was obtained First Name: PANCHO Gender: Female Last Name: LISA : 1945 [facility] Initial: L Age: 73 year(s) Patient #: [id number] Race: Unknown Additional ID: [id number] Contact details [address]: [address] [place] [address] State: [place] City: [place] Zip code: [address] Past Medical History Allergies Allergen Reaction Date Comments Reported Codeine 11/06/2018 Admission Admission Data Admission Date: 11/06/2018 Admission Time: 10:22 Weight (lbs.): 140 Weight (kg.): 63.5 Procedure Procedure Types Cath Procedure Peripheral Cath Diagnostic Procedure Hardness Inspector Peripheral Procedures Abd/Extremity Extremities Bilat Lower Extremity Procedure Description Procedure Date Procedure Date: 11/06/2018 Procedure Start Time: 13:31 Procedure End Time: 16:24 Procedure Staff Name Function Won Brown MD Performing Physician Letitia Herrera RT Monitor Bigg Urias PIN DRAFTING MACHINE TENDER Additional personnel Janie Thomas RN Nurse Graciela Barth RN Nurse Roddy Walker RT Scrub Igor Dias PIN DRAFTING MACHINE TENDER Additional personnel Procedure Data Cath Procedure Fluoroscopy Diagnostic fluoroscopy Total fluoroscopy Time: time: 32.4 min 32.4 min Diagnostic fluoroscopy Total fluoroscopy dose: 974 dose: 974 mGy mGy Contrast Material Contrast Material Type Amount (ml) Isovue 300 155 Procedure Complications No complications Procedure Medications Medication Administration Route Dosage Heparin Bolus I.V. 3000 units Radial Cocktail I.A. 1 syringe (Verapamil 2mg/Nitro 400mcg/Heparin 1500units) Nitroglycerin IC/IA I.A. 300 mcg Heparin Bolus I.V. 2000 units Nitroglycerin IC/IA I.A. 300 mcg Heparin Bolus I.V. 2000 units Nitroglycerin IC/IA I.A. 200 mcg Nitroglycerin IC/IA I.A. 200 mcg Hemodynamics Rest Pre Cath Intra NCS Post Cath Vital Signs Time etCO2 NIBP Rhythm Pain Sedation (mmHg) (mmHg) Status Level 14:14:47 0 No Cuff NSR 0 (11) , 10(A) No pain Medications Time Medication Route Dose Verified Delivered Reason Notes Effec tiveness by by 14:14:29 Heparin Bolus I.V. 3000 Won Lima used for units William Brown RN procedure 14:14:52 Radial I.A. 1 Won Lima used for Cocktail syringe William Brown RN procedure (Verapamil MD 2mg/Nitro 400mcg/Heparin 1500units) 15:02:19 Nitroglycerin I.A. 300 mcg Won Upton Per IC/IA Stephanie Brown MD physician 15:13:41 Heparin Bolus I.V. 2000 Won Upton used for units Stephanie Brown MD procedure 15:13:59 Nitroglycerin I.A. 300 mcg Won Upton Per IC/IA Stephanie Brown MD physician 15:38:05 Nitroglycerin I.A. 200 mcg Won Upton Per IC/IA Stephanie Brown MD physician 15:38:58 Heparin Bolus I.V. 2000 Won Upton used for units Stephanie Brown MD procedure 15:58:22 Nitroglycerin I.A. 200 mcg Won Upton Per IC/IA Stephanie Brown MD physician Procedure Log Time Note 12:42:43 Patient Weight : 140 lbs 12:43:28 Use device set IR Diagnostic 12:43:59 Micropuncture VSI 4FR kit opened to sterile field. 12:43:59 DOC .035 wire (P53011) opened to sterile field. 12:44:00 Tegaderm 4 x 4 (1626W) opened to sterile field. 12:44:01 Sterile Angiographic Pack opened to sterile field. 12:44:02 Bag Decanter () opened to sterile field. 12:44:03 ACIST Manifold (68177) opened to sterile field. 12:44:05 ACIST Hand Control (48170) opened to sterile field. 12:44:06 ACIST Syringe (95074) opened to sterile field. 12:56:26 Time tracking: Regular hours (M-F 7:00 - 5:00) 12:56:50 Plan of Care:Hemodynamics will remain stable., Cardiac rhythm will remain stable., Comfort level will be maintained., Respiratory function will remain adequate., Patient/ family verbilizes understanding of procedure., Procedure tolerated without complication., Recovers from procedure without complications.. 12:56:57 Patient received from Outpatients to IR Alert and oriented. Tansferred to table in Supine position. 12:57:12 Signed procedure consent form obtained from patient. 12:57:13 Warm blankets applied, and bret hugger turned on for patient comfort. 12:57:15 Correct patient and procedure confirmed by team. 12:57:22 H&P Date Dictated: 11/06/2018 Within 30 days and on chart., H&P Addendum completed by physician on day of procedure. (MUST COMPLETE FOR ALL OUTPATIENTS). 12:57:24 Pre-procedure instructions explained to patient. 12:57:25 Pre-op teaching completed and patient verbalized understanding. 12:57:27 Family in waiting room. 12:57:29 Patient NPO since Midnight. 12:57:43 Patient allergic to Codeine 12:57:48 Is the patient allergic to Iodine/contrast media? No. 12:59:58 Patient diabetic? No. 13:00:00 - 13:00:02 ----Pre-sedation anethsthesia assessment.----see anesthesia notes for monitoring of patient during procedure 13:00:36 - 13:00:56 GLIDE CATHETER 5FR ANGLED 65cm (CG507) opened to sterile field. 13:01:10 HERNANDEZ 260 wire (X38408) opened to sterile field. 13:25:40 Left groin area was prepped with chlora-prep and draped in sterile fashion 13:29:36 IV patent on arrival in right hand with D5/.45%NaCl at [facility]. 13:29:44 Pre procedure: right dorsailis pedis pulse Doppler 13:29:54 Pre procedure: left dorsailis pedis pulse Doppler 13::59 Pre procedure: right posterior tibial pulse Doppler 13:30:15 Pre procedure: left posterior tibial pulse Doppler 13:30:27 Physician arrived 13::28 --------ALL STOP TIME OUT------ 13:30:30 Final Timeout: patient, procedure, and site verified with staff and physician. All members of the team are in agreement. 13:31:06 Fire Safety Assessment: A--An alcohol-based skin anteseptic being used preoperatively., C--Open oxygen or nitrous oxide is being used. 13:31:40 Procedure started. 13:31:40 Full Disclosure recording started 13::45 Local anesthetic to left femerol artery with Lidocaine 1% by Won Brown MD.INITIAL ACCESS ONLY 13:31:59 Arterial access obtained using ultrasound guidance. 13:34:34 SHEATH 5FR [place] (TPP582) opened to sterile field. 13:35:28 - 13:46:53 Cordis 5Fr BRITE TIP 11cm sheath opened to sterile field. 13:48:00 AMPLATZ Super Stiff 75cm wire ([id number]) opened to sterile field. 14:11:25 SHEATH 6FR Slender (55-1534) opened to sterile field. 14:14:29 Heparin Bolus 3000 units I.V. was administered by Janie Thomas RN; used for procedure; 14:14:52 Radial Cocktail (Verapamil 2mg/Nitro 400mcg/Heparin 1500units) 1 syring e I.A. was administered by Janie Thomas RN; used for procedure; 14:17:32 CXI Catheter 90cm (P06756) opened to sterile field. 14:17:33 GLIDE WIRE ANGLE 260cm (LB2863) opened to sterile field. 14:18:45 TORQUE DEVICE PLASTIC .038 ( TD01) opened to sterile field. 14:19:28 ROADRUNNER .035 260 glide wire (H28159) opened to sterile field. 14:39:18 GLIDE CATHETER 4FR Straight 100cm (CG413) opened to sterile field. 14:51:16 Navicross Support Straight .035 150cm catheter (AM12558) opened to sterile field. 14:56:27 CHOICE PT Extra Support J 300cm guide wire (0335181E2) opened to steril e field. 14:57:51 SHEATH 6FR Slender (80-1060) opened to sterile field. 14:58:14 Hawkone Medium Atherectomy System (H1-M) opened to sterile field. 15:02:19 Nitroglycerin IC/IA 300 mcg I.A. was administered by Won Brown MD; Pe r physician; 15:13:41 Heparin Bolus 2000 units I.V. was administered by Won Brown MD; used for procedure; 15:13:59 Nitroglycerin IC/IA 300 mcg I.A. was administered by Won Brown MD; Pe r physician; 15:23:03 INFLATOR BasixTOUCH (SK4066) opened to sterile field. 15:23:55 Inflate balloon Inflation number: 1 A INPACT ADMIRAL 5 X 250 X 130 ([id number]) was prepped and advanced across the Undefined1 , then inflated . 15:38:05 Nitroglycerin IC/IA 200 mcg I.A. was administered by Won Brown MD; Pe r physician; 15:38:58 Heparin Bolus 2000 units I.V. was administered by Won Brown MD; used for procedure; 15:45:20 COPILOT Valve Control (7870535) opened to sterile field. 15:53:18 Several injections are made down the right leg. 15:58:22 Nitroglycerin IC/IA 200 mcg I.A. was administered by Won Brown MD; Pe r physician; 16:04:00 Fluoroscopy time 32.40 minutes. 16:04:08 Fluoroscopy dose: 974 mGy 16:04:08 Flurop Dose total: 974 16:04:25 Dose Area Product 369674 mGy/cm. 16:08:49 Procedure ended.(Physican Out) 16:09:22 Contrast amount:Isovue 300 155ml. 16:09:29 Sharps counted by scrub and verified by R.N. 16:16:20 Insertion/operative site no bleeding no hematoma. 16:18:15 Post-op/insertion site Right PEDIAL artery dressed using a 4 x 4 and Tegaderm. 16:19:01 Post Pedal area:stable 16:19:53 Post-procedure physical assessment completed. SEE ANESTHESIA POST PROCEDURE NOTE FOR ASSESMENT 16:20:59 Post procedure instruction explained to patient.Patient verbalizes understanding. 16:21:00 Patient needs reinforcement of post procedure teaching. 16:21:34 Procedure and supply charges have been captured, reviewed, submitted an d are correct. 16:23:41 Procedure Complication : No complications 16:23:50 See physician's report for complete and final results. 16:23:57 Report given to Recovery Room. 16:24:08 Patient transfered to Recovery Room with Stretcher. 16:24:24 Procedure ended. 16:24:24 Full Disclosure recording stopped Intervention Summary Intervention Notes Time ActionType Lesion and Equipment Used Action# Pressure Duration Attributes 15:23:55 Inflate Undefined1 INPACT ADMIRAL 1 0 00:00 balloon 5 X 250 X 130 ([id number]) Device Usage Item Name Manufacture Quantity Catalog Number Hospital Part Current Minimal Lot# / Charge Number Stock Stock Serial# Code Micropuncture VSI VASCULAR 1 [id number] 137612 819742 5 VSI 4FR kit SOLUTIONS DOC .035 wire Cook Medical 1 [id number] 999202 143991 5 ([id number]) Tegaderm 4 x 4 3M 1 1626W 862914 266540 999142 5 (1626W) Sterile Cardinal 1 [id number] 556757 290742 5 Angiographic Health Pack Bag Decanter Microtek 1 782110 82269 032175 5 () Medical Inc. ACIST Manifold Acist 1 91813 388813 725110 655200 5 (10343) Medical Systems Inc ACIST Hand Acist 1 43421 112585 409984 798891 5 Control Medical (57320) Systems Inc ACIST Syringe Acist 1 81405 865181 780178 809123 20 (64048) Medical Systems Inc GLIDE CATHETER Terumo 1 CG507 809517 370220 5 5FR ANGLED 65cm (CG507) HERNANDEZ 260 wire [employer] 1 X04108 898593 47792 434921 5 (K43861) SHEATH 5FR Terumo 1 RIW231 132316 728326 541374 5 [place] (TVJ193) Cordis 5Fr Cardinal 1 [id number] 884516 756150 5 BRITE TIP 11cm Health sheath AMPLATZ Super [place] 1 [id number] 773985 669998 057087 5 Stiff 75cm Scientific wire ([id number]) SHEATH 6FR Terumo 2 [id number] 053129 379032 737759 5 Slender (80-1060) CXI Catheter [employer] Medical 1 O20301 038230 016202 185495 5 1306643 90cm (H87964) GLIDE WIRE Terumo 1 II9693 568500 200706 927416 5 ANGLE 260cm (UM0328) TORQUE DEVICE [place] 1 TD01 322137 835372 434973 5 PLASTIC .038 ( Scientific TD01) ROADRUNNER [employer] 1 E86823 120971 477168 806784 5 .035 260 glide wire (V26608) GLIDE CATHETER Terumo 1 CG413 970527 779267 5 4FR Straight 100cm (CG413) Navicross Terumo 1 GK07625 949482 516636 056511 5 Support Straight .035 150cm catheter (ZJ00126) CHOICE PT [place] 1 [id number] 643777 043642 728935 5 Extra Support Scientific J 300cm guide wire (9086300Y6) Hawkone Medium Medtronic 1 H1-M 488057 03449900 5 Atherectomy System (H1-M) INFLATOR Merit 1 VO8318 794147 744219 890986 5 [employer] (CG5907) INPACT ADMIRAL Medtronic 1 [id number] 517171 8710190 775935 1 5 X 250 X 130 ([id number]) COPILOT Valve Corbin 1 [id number] 819085 834686 859834 5 Control Vascular (7322257) Signature Audit [place] Stage Time Signature Unsigned Intra-Procedure 11/06/2018 Roddy 4:26:02 PM [facility] RT (R) (CV) Signatures Monitor : Letitia Herrera RT Signature : Date : Time : [address] [address]
[~2018-11-06 10:22] MED LIST: CELEXA20 MG PO; CILOSTAZOL100 MG PO; COLCRYS0.6 MG PO; HYDROCODON-ACE1 EA10 PO; IPRAT-ALBUT 0.5-3 ML UPD; KEFLEX500 MG PO; LASIX40 MG PO; LEVO-T175 MCG PO; LIPITOR20 MG PO; LOMOTIL 2.5-0.1 EAC1 PO; PLAVIX75 MG PO; POTASSIUM99 M1 PO; REGLAN10 MG PO; TOPAMAX50 MG PO; ULTRAM50 MG PO
[2018-11-06 10:49] LABS: BASOPHILS 0.5 % (0-2); EOSINOPHILS 2.6 % (0-7); HEMATOCRIT 37.2 % (36.0-48.0); HEMOGLOBIN 11.7 g/dL (12-16); IMMATURE GRANULOCYTES 0.3 % (0-5); LYMPHOCYTES 21.6 % (15-50); MCH 28.7 pg (26.0-34.0); MCHC 31.5 g/dL (31.0-37.0); MCV 91.2 fL (80.0-100.0); MEAN PLATELET VOLUME 9.6 fL (7.4-10.4); MONOCYTES 13.1 % (2-11); NEUTROPHILS 61.9 % (40-80); RBC 4.08 10x6/uL (4.00-5.40); RDW 15.2 % (11.5-14.5); WBC 7.7 10x3/uL (4.8-10.8)
[2018-11-06 10:56] LABS: PLATELET COUNT 303 10x3/uL (130-400)
[2018-11-06 11:00] LABS: CALC OSMOLALITY 278 mosm/kg (275-300); CALCIUM 8.8 mg/dL (8.5-10.1); CARBON DIOXIDE 30.4 mmol/L (21.0-32.0); CHLORIDE - SERUM 103 mmol/L (98-107); CREATININE - SERUM 0.7 mg/dL (0.6-1.3); GLUCOSE 104 mg/dL (74-106); POTASSIUM - SERUM 3.7 mmol/L (3.5-5.1); SODIUM 140 mmol/L (136-145); UREA NITROGEN 13 mg/dL (7-18); eGFR NON AFRICAN AMERICAN 87 mL/min (90-120)
[2018-11-06 11:04] LABS: APTT 31.8 SECONDS (22.8-39.4); INR 1.02 (0.85-1.17); PROTIME 12.9 SECONDS (11.6-15.0)
[2018-11-06] MEDS ORDERED: ISOSORBIDE DINI30 MG PO (11:05)
[2018-11-06] MEDS ORDERED: COREG6.25 MG PO (11:05)
[2018-11-06] MEDS ORDERED: MERIBIN5 MG PO (11:05)
[2018-11-06] MEDS ORDERED: MAG-OXIDE400 MG PO (11:06)
[2018-11-06] MEDS ORDERED: ASCORBIC ACID500 MG PO (11:06)
[2018-11-06] MEDS ORDERED: ASPIRIN81 MG PO (11:06)
[2018-11-06 11:14] VITALS: Ht 142.2 cm; Wt 63.6 kg
--- NOTE | 2018-11-06 12:34 | NUR ---
DR. LAYTON NOTIFIED AND REVIEWED PT'S BEHAVIOR AND ASSESSMENT RESULTS. PT IS A LOW RISK PER DR. LAYTON. DR. LAYTON STATED TO GIVE RESOURCES TO PT AT TIME OF DISCHARGE. NO FURTHER ORDERS AT THIS TIME. RESOURCES REVIEWED WITH PT AND SHE VERBALIZED UNDERSTANDING.
--- NOTE | 2018-11-06 18:26 | NUR ---
1710 FREQUENT VS DONE. SCANT AMT OF DRAINAGE TO RT LOWER ANKLE AND DRESSING TO BILATERL GROINS CLEAN DRY AND INTACT. SOFT AROUND AREA. PT ASLEEP AND SISTER AT BEDSIDE. 1800 DR ALCALA AT BEDSIDE. PT STATED HER RIGHT GROIN AND BACK HURTS. PT HAS PAIN MEDS ORDERED. REQUEST TO USE BEDPAN. TURNED TO RIGHT SIDE W/O BENDING OR USING LEGS. UNABLE TO URINATE. PT TILTED TO EAT FINGER TRAY. 1815 DR YBARRA MASTER LAY OUT SPECIALIST NOTIFIED HIM OF SEROUS DRAINGE COMPLETLEY COVERING 2X2 GAUZE DRESSING WITH OPSITE. ORDERS GIVEN TO REINFORCE A MILD PRESSURE DRESSING AND WATCH UNTIL 8PM
--- NOTE | 2018-11-06 18:50 | NUR ---
1845 PT ATE WELL. MEDICATED PO FOR CRONIC BACK PAIN. DRESSING TO RT GROIN 50% COVERED WITH SEROUS BLOOD. AREA SOFT AND PULSES PALPABLE NOW. DOPPLER PRIOR TO RIGHT FOOT. 1850 PT ON BEDPAN TO URINATE. NO DRAINGE TO REINFORCED DRESSING ON RIGHT ANLE
--- NOTE | 2018-11-06 19:00 | NUR ---
1900 PT OFF BEDPAN UNABLE TO URINATE. SMALL CUT TO INNER RIGHT LIP AND SMALL BLOOD BLISTER TO RIGH INNER LIP. NO ACTIVE BLEEDING NOTED.
--- NOTE | 2018-11-06 19:57 | NUR ---
1940 PT ASSISTED UP TO BATHROOM WITH PERSON ON EACH SIDE. VOIDED LARGE AMT ON TOILET. DRESSINGS REMAIN DRY TO RT ANKLE AND REINFORCED TO RT GROIN. 75% COVERED AND AREEA SOFT AROUND SITE. PT HAD AND HAS SWELLING TO CALF AREA ON RIGHT LEG AND FEET. INSTRUCTIONS GIVEN AND PT PAIN EASED A LITTLE TO BACK. O2 SAT REMAIN ABOVE 93% ON RA. PT ON O2 AT HOME DAY AND NIGHT. ASSITED WITH GETTING DRESSED AND SHOE BOOT APPLIED TO LEFT FOOT. KERLEX SADI TO LEFT FOOT FROM HOME. PT HAS HEALING GANGRENOUS TOES.
== END 2018-11-06 20:00 | disposition home or self-care (01) ==
LOC: D.SP 10:22
PROVIDERS: ATTEND General Practice
DX: I70.211 Atherosclerosis of native arteries of extremities with intermittent claudication, right leg (principal); Z01.812 Encounter for preprocedural laboratory examination